=== PATIENT | male | born 1995 | race Caucasian/White ===

== ENCOUNTER 2019-11-19 16:57 | Emergency (ER) | payer BC ==
[~2019-11-19 16:57] MED LIST: Iopamidol 370 76% 100 ML VIAL ONE
[2019-11-19] MEDS ORDERED: Sodium Chloride 0.9% 1,000 ML ONE (17:06)
[2019-11-19] MEDS ORDERED: Ondansetron PF 4 MG/2 ML Vial ONE (17:06)
[2019-11-19] MEDS ORDERED: Morphine 4 MG/ML VIAL ONE (17:06)
[2019-11-19 17:14] LABS: #Basophils 0.2 thou/uL (0.0-0.2); #Eosinphils 0.2 thou/uL (0.0-0.7); #Monocytes 0.8 thou/uL (0.11-0.59); #Neutrophils 8.3 thou/uL (1.40-6.50); %Basophils 1.6 % (0.0-1.0); %Eosinophils 1.3 % (0.0-10.0); %Lymphocytes 24.2 % (21.0-51.0); %Monocytes 6.6 % (0.0-10.0); %Neutrophils 66.4 % (42.0-75.0); Hemoglobin 15.4 g/dL (14.0-18.0); Mean Corpuscular HGB CONC 33.6 g/dL (32.0-36.0); Mean Corpuscular Hemoglobin 29.4 pg (27.0-31.0); Mean Corpuscular Volume 87.6 fL (78.0-98.0); Mean Platelet Volume 10.1 fL (7.4-10.4); Platelet Count 254 thou/uL (130-400); RBC Distribution Width 11.8 % (11.5-14.5); Red Blood Cell (RBC) Count 5.25 mill/uL (4.70-6.10); White Blood Cell (WBC) Count 12.5 thou/uL (4.8-10.8)
[2019-11-19 17:20] LABS: PTT 25.3 SEC (22.9-36.1); Prothrombin Time 13.5 SEC (12.0-14.7)
[2019-11-19 17:29] LABS: ALT (SGPT) 34 U/L (8-55); AST (SGOT) 35 U/L (5-34); Albumin 4.8 g/dL (3.5-5.0); Alkaline Phosphatase 75 U/L (40-110); Anion Gap 18 mmol/L (10-20); BUN (Urea Nitrogen) 24 mg/dL (8.9-20.6); Bilirubin, Total 0.4 mg/dL (0.2-1.2); Calc. Creatinine Clearance 0 mL/min (70-130); Calcium 9.2 mg/dL (7.8-10.44); Carbon Dioxide 19 mmol/L (22-29); Chloride 109 mmol/L (98-107); Estimated GFR-MDRD 72; Globulin 2.6 g/dL (2.4-3.5); Glucose 120 mg/dL (70-105); Potassium 3.9 mmol/L (3.5-5.1); Protein, Total 7.4 g/dL (6.0-8.3); Sodium 142 mmol/L (136-145)
[2019-11-19 17:29] LABS: Alcohol Less than 10 mg/dL (Less than 10); Lipase 33 U/L (8-78)
--- NOTE | 2019-11-19 17:53 | CT ---
CT Brain WO Con History: Trauma Comparison: None. Findings: No acute hemorrhage or infarct. No midline shift or mass effect. Ventricular size and extra -axial CSF spaces are normal. There is abnormal hyperdensity of the right lobe age indeterminant. Impression: 1. No acute hemorrhage or infarct. 2. Abnormal high density of the right globe suggesting hemorrhage or debris which is age indeterminan t. If this is an acute clinical finding, urgent ophthalmologic consultation advised.
--- NOTE | 2019-11-19 17:56 | CT ---
CT Cervical Spine WO Con History: Trauma Comparison: None. Findings: The occipital condyles are intact. The odontoid process is intact. No acute traumatic facet joint widening. There is a capsular calcification of the left C5/C6 facet joint posterior laterally. This suggests an old injury. Lung apices are clear. The spinous processes are intact. Transverse processes are intact. A few mildly prominent left posterior occipital lymph nodes. Impression: No acute fracture or malalignment of the cervical spine.
--- NOTE | 2019-11-19 17:59 | CT ---
CT Facial Bones WO Con History: Trauma Comparison: None. Findings: Normal location of the temporomandibular joints. No mandibular fracture. The zygoma, zygom atic arches, lateral orbital lee, medial orbital lee, orbital floors, orbital roofs are intact. Abnormal high density of the right globe which is slightly smaller than the left globe. No acute nasa l bone fracture. Impression: 1. No acute fracture of the face. 2. Abnormal asymmetric hypodensity in the anterior and posterior chamber of the right globe which is asymmetrically smaller than the left globe. If the patient is acutely unable to see had a right eye, urgent ophthalmologic consultation would be advised.
--- NOTE | 2019-11-19 18:07 | RAD ---
XR Chest 1 View History: Trauma Comparison: None. Findings: Lungs are clear. No pneumothorax or effusion. Cardiac silhouette and mediastinal contours a re within normal limits. No acute osseous abnormality. Impression: No acute intrathoracic abnormality.
--- NOTE | 2019-11-19 18:08 | RAD ---
XR Ankle Rt 3 View STANDARD History: Fracture Comparison: None. Findings: There is a fibular fracture above the syndesmosis and above the ankle Centimeter. Transversely oriented medial malleolar fracture. Likely posterior malleolar fracture not well seen. No lateral talar shift. Impression: 1. Distal fibular diaphyseal fracture of the syndesmosis. 2. Transversely oriented medial malleolar fracture with mild distraction. 3. Likely a posterior malleolar fracture not well seen.
--- NOTE | 2019-11-19 18:13 | RAD ---
XR Shoulder Rt 3 View STANDARD History: Trauma Comparison: None. Findings: Nondisplaced fracture of the greater tuberosity. Acromioclavicular alignment appears normal . Impression: Nondisplaced fracture greater tuberosity of the humerus.
--- NOTE | 2019-11-19 18:20 | CT ---
CT Chest Abd Pelvis W Con Limited CT thoracic spine with contrast Limited CT lumbosacral spine without contrast History: Trauma Comparison: None Findings: Nondisplaced fracture right greater tuberosity incompletely evaluated. The clavicles are in tact. The scapula appears be intact as well as the glenoid. Sternum and manubrium are intact. Thoracic spine and lumbar spine are intact. 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 Spinous processes appear to be intact. No acute traumatic facet joint widening. No acute displaced rib fracture. No SI joint widening. The pubic symphysis intact. Femoral heads and necks are intact. 3 mm nodule in the right upper lobe. No pulmonary contusion. No pneumatocele. No acute aortic injury. No significant pericardial effusion. Small volume residual thymus in the ante rior mediastinum. The liver, spleen, kidneys, adrenal glands, retroperitoneum, pancreas are without acute injury. No me senteric hematoma. No free intraperitoneal gas or fluid. The appendix is visualized and is normal. No retroperitoneal periaortic adenopathy. Impression: 1. Nondisplaced right ureter tuberosity of the humerus fracture. 2. No other traumatic abnormality within the chest, abdomen, or pelvis.
[2019-11-19] MEDS ORDERED: Sodium Chloride 0.9% 100 ML ONE (18:37)
[2019-11-19] MEDS ORDERED: CEFAZOLIN 1 GM VIAL ONE (18:37)
[2019-11-19] MEDS ORDERED: HYDROmorphone 0.5 MG/0.5 ML SYRINGE ONE (18:38)
[2019-11-19] MEDS ORDERED: Bacitracin 1 PK ONE (19:26)
== END 2019-11-19 19:58 | disposition short-term general hospital (02) ==
LOC: NAV ERS 16:57
DX: S06.0X9A Concussion with loss of consciousness of unspecified duration, initial encounter (principal); S89.301A Unspecified physeal fracture of lower end of right fibula, initial encounter for closed fracture; S42.254A Nondisplaced fracture of greater tuberosity of right humerus, initial encounter for closed fracture; S05.11XA Contusion of eyeball and orbital tissues, right eye, initial encounter; F17.220 Nicotine dependence, chewing tobacco, uncomplicated; V80.010A Animal-rider injured by fall from or being thrown from horse in noncollision accident, initial encounter
CPT/HCPCS: 29515; 70450; 70486; 71045; 71260; 72125; 74177; 80053; 80307; 83690; 85025; 85610; 85730; 94760; 96361; 96365; 96375; J0690; J1170; J2270; J2405; J3490; J7050; Q9967

== ENCOUNTER 2020-12-31 11:45 | Emergency (ER) | payer OTHER, BC ==
[2020-12-31] MEDS ORDERED: Ondansetron PF 4 MG/2 ML Vial ONE (12:09)
[2020-12-31] MEDS ORDERED: Morphine 4 MG/ML VIAL ONE ×2 (12:09→12:46)
[2020-12-31 12:12] LABS: #Basophils 0.1 thou/uL (0.0-0.2); #Eosinphils 0.2 thou/uL (0.0-0.7); #Lymphocytes 3.6 thou/uL (1.20-3.40); #Monocytes 0.7 thou/uL (0.11-0.59); #Neutrophils 4.7 thou/uL (1.40-6.50); %Basophils 1.2 % (0.0-1.0); %Eosinophils 1.7 % (0.0-10.0); %Lymphocytes 38.7 % (21.0-51.0); %Monocytes 7.9 % (0.0-10.0); %Neutrophils 50.5 % (42.0-75.0); Hemoglobin 15.4 g/dL (14.0-18.0); Mean Corpuscular HGB CONC 30.5 g/dL (32.0-36.0); Mean Corpuscular Hemoglobin 27.2 pg (27.0-31.0); Mean Corpuscular Volume 89.1 fL (78.0-98.0); Mean Platelet Volume 9.1 fL (7.4-10.4); Platelet Count 277 thou/uL (130-400); RBC Distribution Width 12.3 % (11.5-14.5); Red Blood Cell (RBC) Count 5.66 mill/uL (4.70-6.10); White Blood Cell (WBC) Count 9.3 thou/uL (4.8-10.8)
[2020-12-31 12:17] LABS: PTT 23.9 sec (22.9-36.1); Prothrombin Time 13.1 sec (12.0-14.7)
[2020-12-31 15:48] LABS: Carbon Dioxide 22 mmol/L (22-29); Chloride 107 mmol/L (98-107); Potassium 3.7 mmol/L (3.5-5.1); Sodium 140 mmol/L (136-145)
[2020-12-31 15:49] LABS: Anion Gap 15 mmol/L (10-20); BUN (Urea Nitrogen) 16 mg/dL (8.9-20.6); Bilirubin, Total 0.7 mg/dL (0.2-1.2); Calc. Creatinine Clearance 0 mL/min (70-130); Calcium 9.1 mg/dL (7.8-10.44); Glucose 131 mg/dL (70-105); Protein, Total 7.6 g/dL (6.0-8.3)
[2020-12-31 15:50] LABS: ALT (SGPT) 31 U/L (8-55); AST (SGOT) 26 U/L (5-34); Albumin 4.7 g/dL (3.5-5.0); Alkaline Phosphatase 84 U/L (40-110); Globulin 2.9 g/dL (2.4-3.5)
== END 2020-12-31 14:00 | disposition short-term general hospital (02) ==
LOC: NAV ERS 11:45
DX: S42.201A Unspecified fracture of upper end of right humerus, initial encounter for closed fracture (principal); S43.014A Anterior dislocation of right humerus, initial encounter; F17.220 Nicotine dependence, chewing tobacco, uncomplicated; V80.010A Animal-rider injured by fall from or being thrown from horse in noncollision accident, initial encounter
CPT/HCPCS: 71045; 80053; 85025; 85610; 85730; 96374; 96375; 96376; J2270; J2405